=== PATIENT | female | born 1975 | race Caucasian/White ===

== ENCOUNTER 2020-01-26 08:22 | Emergency (ER) | payer OTHER ==
[~2020-01-26] VITALS: Ht 152.4 cm; Wt 61.2 kg
--- NOTE | 2020-01-26 08:32 | NUR ---
Pt's earrings removed and placed in biobag at this time.
[2020-01-26 08:45] LABS: HEMOGLOBIN 14.6 G/DL (11.5-16.0); MEAN PLATELET VOLUME 9.3 FL (7.4-10.4); RED CELL DISTRIBUTION WIDTH 13.3 % (10.0-14.5)
--- NOTE | 2020-01-26 08:45 | NUR ---
MONA Marquez, spoke to daughter that lives in [place] by phone.
[2020-01-26 08:52] LABS: ALBUMIN 3.9 GM/DL (3.2-4.5); CHLORIDE 109 MMOL/L (98-107); POTASSIUM 3.9 MMOL/L (3.6-5.0); SODIUM 138 MMOL/L (135-145)
[2020-01-26 08:53] LABS: CALCIUM 8.9 MG/DL (8.5-10.1)
[2020-01-26 08:55] LABS: GLUCOSE 130 MG/DL (70-105); TOTAL PROTEIN 6.8 GM/DL (6.4-8.2)
[2020-01-26 08:56] LABS: BILIRUBIN,TOTAL 0.4 MG/DL (0.1-1.0); CARBON DIOXIDE 22 MMOL/L (21-32)
[2020-01-26 08:58] LABS: ALKALINE PHOSPHATASE 74 U/L (40-136); CREATININE SERUM 0.79 MG/DL (0.60-1.30); GFR ESTIMATED > 60
[2020-01-26 09:00] LABS: BILIRUBIN,DIRECT 0.1 MG/DL (0.0-0.3); BILIRUBIN,INDIRECT 0.3 MG/DL; BUN/CREATININE RATIO 13
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
[2020-01-26 09:01] LABS: ALANINE AMINOTRANSFERASE 19 U/L (0-55)
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
--- NOTE | 2020-01-26 09:04 | NUR ---
Spoke to pt's daughter, Kyra, at this time.
[2020-01-26] MEDS ORDERED: fentaNYL INJECTION 100 MCG/2 ML AMP IVP STA ×3 (09:14→12:02)
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
[2020-01-26] MEDS ORDERED: ONDANSETRON 4 MG/2 ML (SDV) Z0FRAN ONE (10:06)
[2020-01-26] MEDS ORDERED: ONDANSETRON 4 MG/2 ML (SDV) Z0FRAN IVP ONE (10:15)
[2020-01-26] MEDS ORDERED: TETANUS,DIPTH,PERTUSS P/F (BOOSTRIX) 0.5 ML VIAL IM ONE (10:15)
[2020-01-26 10:21] LABS: BILIRUBIN,URINE NEGATIVE (NEGATIVE); CLARITY,URINE CLOUDY; COLOR,URINE YELLOW; GLUCOSE, URINE (UA) NEGATIVE (NEGATIVE); KETONES,URINE NEGATIVE (NEGATIVE); LEUKOCYTE ESTERASE ,URINE TRACE (NEGATIVE); NITRITE,URINE POSITIVE (NEGATIVE); PROTEIN,URINE NEGATIVE (NEGATIVE)
--- NOTE | 2020-01-26 10:27 | NUR ---
Spoke with patient's daughter, Kyra, with update.
[2020-01-26 10:28] LABS: BACTERIA,URINE LARGE /HPF; RBC,URINE 0-2 /HPF
--- NOTE | 2020-01-26 11:25 | NUR ---
Dispatch called at this time.
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
[2020-01-26] MEDS ORDERED: LACTATED RINGERS 1,000 ML IV ONE (12:05)
[2020-01-26 12:14] VITALS: BP 100/69
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
== END 2020-01-26 12:14 | disposition short-term general hospital (02) ==
LOC: ER 08:26
DX: S22.080A Wedge compression fracture of T11-T12 vertebra, initial encounter for closed fracture (principal); S01.511A Laceration without foreign body of lip, initial encounter; S00.81XA Abrasion of other part of head, initial encounter; S10.91XA Abrasion of unspecified part of neck, initial encounter; S20.312A Abrasion of left front wall of thorax, initial encounter; S20.311A Abrasion of right front wall of thorax, initial encounter; S70.212A Abrasion, left hip, initial encounter; S70.211A Abrasion, right hip, initial encounter; S40.022A Contusion of left upper arm, initial encounter; S40.021A Contusion of right upper arm, initial encounter; V47.5XXA Car driver injured in collision with fixed or stationary object in traffic accident, initial encounter; Z23 Encounter for immunization
CPT/HCPCS: 70450; 71045; 71250; 72125; 72170; 74176; 80048; 80076; 81000; 84703; 85027; 86850; 86900; 86901; 87077; 87088; 87186; 93041; 99285; G0480; 36415; 80320; 90715